=== PATIENT | female | born 1995 | race Caucasian/White ===

== ENCOUNTER 2016-12-31 11:13 | Emergency (ER) | payer SELFPAY ==
[~2016-12-31] VITALS: Ht 160 cm; Wt 55.0 kg
[2016-12-31 11:18] VITALS: Ht 160 cm; Wt 55.0 kg
[2016-12-31] MEDS ORDERED: IBUP800T25 PO (13:41)
[2016-12-31] MEDS ORDERED: HYDR-906 PO (13:42)
[2016-12-31] MEDS ORDERED: PSEU120T11 PO (13:42)
--- NOTE | 2016-12-31 13:48 | ERD ---
ER Documentation Chief Complaint Date/Time DATE: 12/31/16 TIME: 13:44 Chief Complaint FEVER AND UPPER BACK PAIN X 3 DAYS HPI Slviatwi-xadc-ahs female who presents to emergency department today complaining of sore throat, fever, body aches and nasal congestion for the past 3 days. Patient states she took diclofenac. Denies any cough, nausea vomiting or diarrhea or dysuria. ROS All systems reviewed and are negative except as per history of present illness. Medications Home Meds Active Scripts Hydrocodone/Acetaminophen (Dry Creek 5-325 Tablet) 1 Each Tablet, 1 TAB PO Q6H Y for PAIN, #10 TAB Prov:REMY KNIGHT PA-C 12/31/16 Pseudoephedrine Hcl (Sudafe 12-Hour) 120 Mg Tablet.er, 120 MG PO BID Y for CONGESTION for 7 Days, TAB.SA Prov:REMY KNIGHT PA-C 12/31/16 Ibuprofen* (Motrin*) 800 Mg Tab, 800 MG PO Q6, #30 TAB Prov:REMY KNIGHT PA-C 12/31/16 Allergies Allergies: Coded Allergies: No Known Allergies (Verified Allergy, Mild, 11/23/14) PMhx/Soc Medical and Surgical Hx: pt denies Medical Hx, pt denies Surgical Hx History of Surgery: No Anesthesia Reaction: No Hx Neurological Disorder: No Hx Respiratory Disorders: No Hx Cardiac Disorders: No Hx Psychiatric Problems: No Hx Miscellaneous Medical Probl: No Hx Alcohol Use: No Hx Substance Use: No Hx Tobacco Use: No Smoking Status: Never smoker Physical Exam Vitals Vital Signs Date Time Temp Pulse Resp B/P Pulse Ox O2 Delivery O2 Flow Rate FiO2 12/31/16 11:18 98.1 105 18 126/60 99 Physical Exam Const: Nontoxic-appearing no acute distress Head: Atraumatic Eyes: Normal Conjunctiva ENT: Ears TMs normal. Nose no drainage. Throat no erythema no exudate Neck: Full range of motion..~ No meningismus. Resp: Clear to auscultation bilaterally. No absent breath sounds. No wheezing. Cardio: Regular rate and rhythm, no murmurs Abd: Soft, non tender, non distended. Normal bowel sounds Skin: No petechiae or rashes Neur: Awake and alert Psych: Normal Mood and Affect Procedures/MDM This Is a 21-year-old female who presents to the emergency department today complaining of influenza-like symptoms for the past 3 days. Patient states that she has not taken her temperature she has just felt chilled and warm. Patient afebrile here in the emergency department. Her respirations are 18 and oxygen saturation 98%. Not she requires laboratory workup or imaging. Patient is tachycardic here in the emergency department maybe related to pain. I do not feel the patient requires a chest x-ray. Patient has not had a cough. Low suspicion for PE, abscess, pneumothorax, pleural effusion. Do not fill the patient requires antibiotics at this time. Patient was complaining of some upper back pain however pain appears to be located along the medial border of her scapula. Patient was given a prescription for a short course of [place] for pain or body aches. She is also given a prescription for Motrin and Sudafed for symptom control. At this time the patient is stable for discharge and outpatient management. Patient should follow up with their PCP in the next 1-2 days. They may return to the emergency department sooner for any persistent or worsening of symptoms. Patient understood and agreed with the plan. Departure Diagnosis: Primary Impression: Flu-like symptoms Condition: Fair Patient Instructions: Influenza (Adult) Referrals: COMMUNITY CLINICS YOU HAVE RECEIVED A MEDICAL SCREENING EXAM AND THE RESULTS INDICATE THAT YOU DO NOT HAVE A CONDITION THAT REQUIRES URGENT TREATMENT IN THE EMERGENCY DEPARTMENT. FURTHER EVALUATION AND TREATMENT OF YOUR CONDITION CAN WAIT UNTIL YOU ARE SEEN IN YOUR DOCTORS OFFICE WITHIN THE NEXT 1-2 DAYS. IT IS YOUR RESPONSIBILITY TO MAKE AN APPOINTMENT FOR FOLOW-UP CARE. IF YOU HAVE A PRIMARY DOCTOR --you should call your primary doctor and schedule an appointment IF YOU DO NOT HAVE A PRIMARY DOCTOR YOU CAN CALL OUR PHYSICIAN REFERRAL HOTLINE AT IF YOU CAN NOT AFFORD TO SEE A PHYSICIAN YOU CAN CHOSE FROM THE FOLLOWING [facility] CLINICS [facility] [address] [facility] [address] [facility] [address] [facility] [address] [facility] [address] [facility] [facility]. [address] [facility] () Naren se avila hecho un examen mdico de control que le indica que no est en marisel condicin que requiera tratamiento urgente en el Departamento de Emergencia. Un estudio ms profundo y el tratamiento de perales condicin pueden esperar sin ningn riesgo hasta que usted sea atendida/o en el consultorio de perales mdico o marisel cl shaorna. Es responsabilidad suya arreglar marisel daniel para el seguimiento del anup. MANEJO DE CONDICIONES NO URGENTES EN EL FUTURO 1) Si usted tiene un mdico de atencin primaria: Usted debera llamar a perales mdico de atencin primaria antes de venir al departamento de emergencia. Despus de las horas de consultorio, perales doctor o perales asociado/a est disponible por telfono. El mdico o enfermero de beau en el servicio telefnico puede asesorarle por linda medio para atender el problema, o anup contrario se puede programar marisel daniel. 2) Si usted no tiene un mdico de atencin primaria: Llame al mdico o clnica de referencia que aparece abajo gee las horas de consultorio para hacer marisel daniel para que le vean. CLINICAS: [facility] [phone] [facility] [phone] [address] [facility] [phone] [address] [facility] [place] [id number] [phone] [facility] [place] [id number] [phone] [facility] [phone] [address] Additional Instructions: Llame al doctor MAANA y jim marisel DANIEL PARA DENTRO DE 1-2 PRIETO.Dgale a la secretaria que nosotros le instruimos hacer esta daniel.Avise o llame si perales condicin se empeora antes de la daniel. Regresa aqui si peor o no mejor. Take [place] for severe pain otherwise take Tylenol or Motrin Take Sudafed for congestion REMY KNIGHT PA-C Dec 31, 2016 13:48
== END 2016-12-31 14:03 | disposition home or self-care (01) ==
LOC: FTE 11:13
DX: R50.9 Fever, unspecified (principal); J02.9 Acute pharyngitis, unspecified; R09.81 Nasal congestion
CPT/HCPCS: 99283